=== PATIENT | male | born 1975 | race Caucasian/White ===

== ENCOUNTER 2018-08-17 06:14 | Day surgery (SDC) | payer BC ==
[2018-08-16 11:57] LABS: Basophils # (auto) 0 uL; Basophils % (auto) 0.6 % (0.0-2.0); Eosinophils # (auto) 0.2 uL; Eosinophils % (auto) 2.3 % (0.0-7.0); Hemoglobin 16.5 g/dL (13.5-17.5); Lymphocytes # (auto) 1.6 uL; Lymphocytes % (auto) 22.6 % (10.0-50.0); Mean Corpuscular Hemoglobin 31.6 pg (28.0-32.0); Mean Corpuscular Hgb Conc. 34.3 g/dL (32.0-36.0); Monocytes # (auto) 0.8 uL; Monocytes % (auto) 11.5 % (0.0-12.0); Neutrophils # (auto) 4.3 uL; Nucleated Red Blood Cells % 0.3 %; Platelet Count (auto) 235 10^3/uL (140-450); Red Blood Cells 5.22 10^6/uL (4.5-5.90); Red Cell Distribution Width 13.2 % (11.8-14.3); White Blood Cell 6.9 10^3/uL (4.4-10.8)
[2018-08-16 12:07] LABS: Potassium 3.7 mmol/L (3.5-5.1)
[2018-08-16 12:12] LABS: Partial Thromboplastin Time 29.6 sec (23.64-32.05)
[2018-08-16 12:14] LABS: Albumin 4.1 g/dL (3.4-5.0); BUN/Creatinine Ratio 14.1; Bilirubin, Total 0.5 mg/dL (0.2-1.0); Calcium 9.1 mg/dL (8.5-10.1); Total Protein 7.8 g/dL (6.4-8.2)
[2018-08-16 17:24] LABS: Urine Amorphous Crystal FEW /hpf (None Seen); Urine Bacteria FEW /hpf (None Seen); Urine Blood Negative /uL (Negative); Urine Specific Gravity 1.035 (1.001-1.035); Urine WBC 145 /hpf (0 - 3)
[~2018-08-17] VITALS: Ht 175.3 cm; Wt 113.4 kg
[2018-08-17] MEDS ORDERED: ceFAZolin 1GM/50ML 50 ML IV ONE (06:56)
[2018-08-17] MEDS ORDERED: LIDOCAINE 1% HCL (LOCAL ANESTH.) INJ 20ML MDV ONE (07:21)
[2018-08-17] MEDS ORDERED: BUPIVACAINE 0.25% INJ 50ML VIAL ONE (07:21)
[2018-08-17] MEDS ORDERED: KETOROLAC TROMETH 15 mg/ml 1ML VL IV ONE (07:30)
[2018-08-17] MEDS ORDERED: METOCLOPRAMIDE HCL 5MG/ml INJ 2ml VIAL IV ONE (07:30)
[2018-08-17] MEDS ORDERED: HYDROmorphone HCL 2 MG/ML VL IV PRN (07:30)
[2018-08-17 08:42] VITALS: BP 148/92
[2018-08-17] MEDS ORDERED: SODIUM CHLORIDE LOCK 10 ML ONE (09:26)
[2018-08-17] MEDS ORDERED: PROPOFOL 10 MG/ML 20 ML IV ONE (09:26)
[2018-08-17] MEDS ORDERED: fentaNYL CITRATE 100 MCG/2 ML VL ONE (09:26)
[2018-08-17] MEDS ORDERED: ONDANSETRON HCL 4 MG/2 ML VIAL ONE (09:26)
[2018-08-17] MEDS ORDERED: MIDAZOLAM HCL 1MG/1ML-2 ML VIAL ONE (09:26)
[2018-08-17] MEDS ORDERED: KETAMINE HCL 1 ML ONE (09:27)
== END 2018-08-17 08:55 | disposition home or self-care (01) ==
LOC: SUR 06:14
PROVIDERS: ATTEND Orthopaedic Surgery
DX: M65.4 Radial styloid tenosynovitis [de Quervain] (principal); J45.909 Unspecified asthma, uncomplicated; E66.8 Other obesity; Z68.37 Body mass index [BMI] 37.0-37.9, adult
CPT/HCPCS: 25000; 36415; 80053; 81001; 85025; 85610; 85730; J0690; J2001; J2250; J2405; J2704; J3010; J3490

== ENCOUNTER 2023-08-05 09:43 | Inpatient (IN) | payer BC, OTHER ==
[~2023-08-05] VITALS: Ht 172.7 cm; Wt 117.5 kg
[2023-08-05 10:10] VITALS: PULSE 130; RESP 12; O2SAT 91
[2023-08-05] MEDS: SODIUM CHLORIDE 0.9% 1,000 ML IV ONE ×2 (10:58→11:36)
[2023-08-05 11:41] LABS: Basophils # (auto) 0 10 ^3/uL (0-0.2); Basophils % (auto) 0.2 % (0.0-2.0); Eosinophils # (auto) 0 10 ^3/uL (0-0.8); Hematocrit 46.5 % (41.0-53.0); Hemoglobin 15.5 g/dL (13.5-17.5); Lymphocytes # (auto) 0.7 10 ^3/uL (0.4-5.4); Lymphocytes % (auto) 3.9 % (10.0-50.0); Mean Corpuscular Hemoglobin 30.6 pg (28.0-32.0); Mean Corpuscular Hgb Conc. 33.4 g/dL (32.0-36.0); Mean Corpuscular Volume 91.6 fL (80.0-100.0); Monocytes # (auto) 1.5 10 ^3/uL (0-1.3); Monocytes % (auto) 8.5 % (0.0-12.0); Neutrophils # (auto) 15.6 10 ^3/uL (1.6-8.6); Neutrophils % (auto) 87.4 % (37.0-80.0); Red Blood Cells 5.07 10^6/uL (4.5-5.90); Red Cell Distribution Width 13.1 % (11.8-14.3); White Blood Cell 17.9 10^3/uL (4.4-10.8)
[2023-08-05 12:01] LABS: Alanine Aminotransferase 32 U/L (7-40); Albumin 4.2 g/dL (3.2-4.8); Alkaline Phosphatase 50 U/L (46-116); Anion Gap 4 (5-15); Aspartate Aminotransferase 17 U/L (13-40); BUN/Creatinine Ratio 9.3 (10.0-20.0); Blood Urea Nitrogen 9 mg/dL (9-23); Calcium 9.2 mg/dL (8.5-10.1); Carbon Dioxide 25 mmol/L (20-30); Chloride 107 mmol/L (98-107); Glucose 109 mg/dL (74-106); Potassium 3.4 mmol/L (3.5-5.1); Sodium 136 mmol/L (136-145)
[2023-08-05 12:02] LABS: Bilirubin, Total 0.6 mg/dL (0.2-1.0); Creatine Kinase IFCC 297 U/L (46-171); Total Protein 7.1 g/dL (5.7-8.2)
[2023-08-05 13:29] LABS: Urine Bacteria None Seen /hpf (None Seen)
[2023-08-05 13:42] LABS: Urine Blood Negative /uL (Negative); Urine Clarity Clear (Clear); Urine Color Yellow (Yellow); Urine Mucus FEW (None Seen); Urine Protein, UAD TRACE (Negative); Urine Specific Gravity 1.028 (1.001-1.035); Urine Urobilinogen Normal (Negative); Urine WBC 1 /hpf (0 - 3); Urine pH 6.5 (5.0-9.0)
[2023-08-05] MEDS ORDERED: MORPHINE SULFATE INJ 2 MG/ml SYRG IV PRN ×2 (16:00→17:00)
[2023-08-05] MEDS ORDERED: ONDANSETRON HCL 4 MG/2 ML VIAL IV PRN (16:00)
[2023-08-05] MEDS ORDERED: DOCUSATE SOD 100 MG CAP PO PRN (16:00)
[2023-08-05] MEDS: ACETAMINOPHEN 650 mg PER 20.3 mL UD PO ONE (16:20)
[2023-08-05] MEDS: SODIUM CHLORIDE 0.9% 1,000 ML IV SCH (16:26)
[2023-08-05] MEDS: ACETAMINOPHEN 325 MG TAB PO PRN (16:26)
[2023-08-05] MEDS ORDERED: NITROGLYCERIN 0.4 MG SL TAB SL PRN (17:00)
[2023-08-05 19:25] VITALS: PULSE 90; RESP 20; O2SAT 96
[2023-08-05 21:08] LABS: Rapid Strep A Screen-Throat Positive
[2023-08-05 21:19] LABS: COVID19 ANTIGEN SOFIA FIA NEGATIVE (NEGATIVE)
[2023-08-05 21:20] LABS: Rapid Influenza A Negative (Negative); Rapid Influenza B Negative (Negative)
[2023-08-05 23:52] VITALS: PULSE 101; RESP 18; O2SAT 95
[2023-08-06] VITALS (8 sets, daily range): BP systolic 118–145; BP diastolic 52–87; PULSE 63–97; RESP 17–20; TEMP 97.6–99.4; O2SAT 95–100
[2023-08-06] MEDS: THROAT LOZENGES(CEPASTAT) MT PRN (00:32)
[2023-08-06 06:24] LABS: Basophils # (auto) 0.1 10 ^3/uL (0-0.2); Basophils % (auto) 0.5 % (0.0-2.0); Eosinophils # (auto) 0 10 ^3/uL (0-0.8); Eosinophils % (auto) 0.2 % (0.0-7.0); Hematocrit 42.3 % (41.0-53.0); Hemoglobin 14.5 g/dL (13.5-17.5); Lymphocytes # (auto) 1.4 10 ^3/uL (0.4-5.4); Lymphocytes % (auto) 9.5 % (10.0-50.0); Mean Corpuscular Hemoglobin 30.9 pg (28.0-32.0); Mean Corpuscular Hgb Conc. 34.3 g/dL (32.0-36.0); Monocytes # (auto) 1.9 10 ^3/uL (0-1.3); Neutrophils # (auto) 11.4 10 ^3/uL (1.6-8.6); Neutrophils % (auto) 76.8 % (37.0-80.0); Red Blood Cells 4.71 10^6/uL (4.5-5.90); Red Cell Distribution Width 12.9 % (11.8-14.3); White Blood Cell 14.9 10^3/uL (4.4-10.8)
[2023-08-06 06:45] LABS: Alanine Aminotransferase 26 U/L (7-40); Albumin 3.9 g/dL (3.2-4.8); Alkaline Phosphatase 47 U/L (46-116); Anion Gap 7 (5-15); Aspartate Aminotransferase 16 U/L (13-40); BUN/Creatinine Ratio 8.3 (10.0-20.0); Blood Urea Nitrogen 7 mg/dL (9-23); Calcium 8.8 mg/dL (8.5-10.1); Carbon Dioxide 20 mmol/L (20-30); Chloride 110 mmol/L (98-107); Glucose 108 mg/dL (74-106); Potassium 3.6 mmol/L (3.5-5.1); Sodium 137 mmol/L (136-145)
[2023-08-06 06:46] LABS: Bilirubin, Total 0.5 mg/dL (0.2-1.0); Creatine Kinase IFCC 241 U/L (46-171); Total Protein 6.5 g/dL (5.7-8.2)
[2023-08-06] MEDS: AMOXICILLIN/CLAVUL 875 MG TAB PO ONE (10:49)
[2023-08-06 11:47] LABS: Triglycerides 75 mg/dL (< 150)
[2023-08-06 11:48] LABS: LDL Cholesterol 127 mg/dL (< 100)
[2023-08-06 11:49] LABS: Cholesterol 173 mg/dL (< 200); HDL Cholesterol 44 mg/dL (40-59)
[2023-08-07 01:00] VITALS: BP 128/86; PULSE 85; RESP 18; TEMP 98; O2SAT 95
[2023-08-07 05:00] VITALS: BP 123/78; PULSE 81; RESP 18; TEMP 97.8; O2SAT 100
[2023-08-07 06:32] LABS: Basophils # (auto) 0 10 ^3/uL (0-0.2); Basophils % (auto) 0.4 % (0.0-2.0); Eosinophils # (auto) 0.2 10 ^3/uL (0-0.8); Hematocrit 43.7 % (41.0-53.0); Hemoglobin 15.3 g/dL (13.5-17.5); Lymphocytes # (auto) 1.4 10 ^3/uL (0.4-5.4); Lymphocytes % (auto) 18.1 % (10.0-50.0); Mean Corpuscular Hemoglobin 31.6 pg (28.0-32.0); Mean Corpuscular Hgb Conc. 35.1 g/dL (32.0-36.0); Mean Corpuscular Volume 90.1 fL (80.0-100.0); Monocytes # (auto) 1.2 10 ^3/uL (0-1.3); Neutrophils # (auto) 4.8 10 ^3/uL (1.6-8.6); Neutrophils % (auto) 63.5 % (37.0-80.0); Red Blood Cells 4.85 10^6/uL (4.5-5.90); Red Cell Distribution Width 13.2 % (11.8-14.3); White Blood Cell 7.6 10^3/uL (4.4-10.8)
[2023-08-07 06:33] LABS: Anion Gap 6 (5-15); Carbon Dioxide 23 mmol/L (20-30); Chloride 110 mmol/L (98-107); Potassium 3.8 mmol/L (3.5-5.1); Sodium 139 mmol/L (136-145)
[2023-08-07 06:34] LABS: Calcium 9.2 mg/dL (8.5-10.1)
[2023-08-07 06:39] LABS: Blood Urea Nitrogen 7 mg/dL (9-23); Creatine Kinase IFCC 197 U/L (46-171); Glucose 101 mg/dL (74-106)
[2023-08-07 09:00] VITALS: BP 113/78; PULSE 74; RESP 16; TEMP 97.8; O2SAT 98
[2023-08-07] MEDS ORDERED: AUG875T PO (10:01)
[2023-08-07 10:20] VITALS: BP 113/78; PULSE 74; RESP 16; TEMP 97.8; O2SAT 98
[2023-08-07] MEDS: AMOXICILLIN/CLAVUL 875 MG TAB PO ONE (11:11)
== END 2023-08-07 11:23 | disposition home or self-care (01) | DRG 923 ==
LOC: ER 09:43 → TELE 16:56 → TELE-EAST 23:34 → EAST 08-06 18:34
PROVIDERS: ADMIT Internal Medicine; ATTEND Internal Medicine
DX: T67.01XA Heatstroke and sunstroke, initial encounter (principal); M62.82 Rhabdomyolysis; J02.0 Streptococcal pharyngitis; E86.0 Dehydration; Z20.822 Contact with and (suspected) exposure to COVID-19; E87.5 Hyperkalemia; D72.829 Elevated white blood cell count, unspecified; E87.6 Hypokalemia; X30.XXXA Exposure to excessive natural heat, initial encounter; Y93.89 Activity, other specified; Y92.89 Other specified places as the place of occurrence of the external cause; Y99.8 Other external cause status
CPT/HCPCS: 36415; 71045; 80048; 80053; 80061; 81001; 82550; 83036; 83605; 84439; 84443; 85025; 87040; 87426; 87804; 87880; 96360; 96361; G0378